=== PATIENT | male | born 2000 | race Caucasian/White ===

== ENCOUNTER 2020-06-12 03:38 | Emergency (ER) | payer OTHER ==
[2020-06-12] MEDS ORDERED: IOPAMIDOL-300 100 ML VIAL ONE (03:51)
[2020-06-12] MEDS ORDERED: BUFFERED LIDOCAINE 10 ML SYRINGE IU ONE (03:58)
--- NOTE | 2020-06-12 03:58 | ED Physician Documentation ---
History of Present Illness - Stated complaint Stated Complaint: FALL/HEAD INJ - Chief complaint Chief Complaint: Trauma Hd/Nk - History obtained from History obtained from: Patient - Additonal information Additional information: Patient comes emergency department chief complaint of fall from airplane wing with chin and right leg pain. Patient states that he was trying to carry some things up a ladder onto an airplane wing when he lost his balance and fell. He estimates he fell about 8 feet and landed on the concrete right on his chin. He states that he also had his phone in his pocket over his right thigh and that he came down on this, as well. Patient is complaining of right lateral thigh pain and pain and swelling in his chin area. He states that the incident did seem to snap his head back, but he does not have any pain in his neck. No numbness or tingling in any of his extremities. No weakness. The patient denies any rib pain or difficulty breathing. No abdominal pain. He does note some pain in the right hip when he stood up. Patient was able to get up and ambulated by himself to a private vehicle which brought him here. Upon arrival, staff did go and meet the patient in the parking lot and placed c-collar on his neck and put him intermediates spinal precautions including backboard. Patient denies any visual changes. No other complaints at this time. No dizziness. Review of Systems Ten Systems: 10 systems reviewed and negative Constitutional: reports: Reviewed and negative Eyes: reports: Reviewed and negative Ears: reports: Reviewed and negative Nose: reports: Reviewed and negative Throat: reports: Other (Mandibular injury and pain) Cardiac: reports: Reviewed and negative Respiratory: reports: Reviewed and negative GI: reports: Reviewed and negative : reports: Reviewed and negative Skin: reports: Reviewed and negative Musculoskeletal: reports: Reviewed and negative Neurologic: reports: Reviewed and negative Psychiatric: reports: Reviewed and negative Endocrine: reports: Reviewed and negative Immunocompromised: reports: Reviewed and negative PD PAST MEDICAL HISTORY - Past Medical History Past Medical History: No Cardiovascular: None Respiratory: None Neuro: None Endocrine/Autoimmune: None GI: None : None HEENT: None Psych: None Musculoskeletal: None Derm: None - Past Surgical History Past Surgical History: No - Present Medications Home Medications: Ambulatory Orders Medication Instructions Recorded Confirmed HYDROcod/ACETAM 5/325 [[place] 5/325] 1 - 2 tablet PO Q6H PRN #14 tablet 06/12/20 - Allergies Allergies/Adverse Reactions: Allergies Allergy/AdvReac Type Severity Reaction Status Date / Time No Known Drug Allergies Allergy Verified 06/12/20 03:44 - Social History Does the pt smoke?: No Smoking Status: Never smoker Does the pt drink ETOH?: Yes Does the pt have substance abuse?: No - Immunizations Immunizations are current?: Yes - POLST Patient has POLST: No PD ED PE NORMAL - Vitals Vital signs reviewed: Yes - General General: Alert and oriented X 3, No acute distress, Well developed/nourished - HEENT HEENT: PERRL, EOMI, Moist mucous membranes, Other (Moderate edema and contusion of mental area with 3 cm submental laceration. No mandibular step-off. Partial avulsion of enamel of occlusal surfaces of molar 1 on both left mandibular and left maxillary areas. No pulp exposure.) - Neck Neck: Supple, no meningeal sign, No bony TTP, Other (Trachea midline.) - Cardiac Cardiac: RRR, No murmur, Strong equal pulses - Respiratory Respiratory: No respiratory distress, Clear bilaterally - Abdomen Abdomen: Soft, Non tender, Non distended - Back Back: No spinal TTP - Derm Derm: Normal color, Warm and dry, No rash - Extremities Extremities: No deformity, No edema, Other (Moderate tenderness over proximal right thigh. Mild edema. No pain with AP or lateral compression of pelvis.) - Neuro Neuro: Alert and oriented X 3, v[employer] 2-12 intact, No motor deficit, No sensory deficit, Normal speech Eye Opening: Spontaneous Motor: Obeys Commands Verbal: Oriented GCS Score: 15 - Psych Psych: Normal mood, Normal affect Results - Vitals Vitals: Oxygen O2 Source Room air - Rads (name of study) CT face Radiology: Final report received, EMP read indepedently, See rad report (neg) CT c-spine Radiology: Final report received, EMP read indepedently, See rad report (neg) Procedures - Laceration (location) chin Length in cm: 3 Wound type: Linear, Into subcut fat, Clean. No: Exposure of bone Neurovascular status: Sensory intact, Motor intact, Vascular intact Tendon involvement: No: Tendon Injury Anesthesia: Lidocaine 1% Wound preparation: Hibiclens, Irrigated copiously NS, Wound explored, To the base. No: FB identified Skin layer closure: Nylon, Interrupted, Size #-0 - enter number (4.0), Sutures - enter # (8) Other: Patient tolerated well, No complications, Neurovascular intact, Dressing applied, Tetanus UTD PD MEDICAL DECISION MAKING - ED course Complexity details: reviewed results, re-evaluated patient, considered differential, d/w patient ED course: The patient was worked up with CT scans of the face and neck, as well as x-rays of the right hip and femur. He was treated symptomatically with a dose of IV Dilaudid. CT and x-rays showed no acute significant injuries. The patient was deemed stable for discharge home. We have discussed wound management at home, the timeline for suture removal, and the usual indications for return. Departure - Departure Disposition: 01 Home, Self Care Clinical Impression: Laceration of chin Qualifiers: Encounter type: initial encounter Qualified Code(s): S01.81XA - Laceration without foreign body of other part of head, initial encounter Facial contusion Qualifiers: Encounter type: initial encounter Qualified Code(s): S00.83XA - Contusion of other part of head, initial encounter Cervical strain Qualifiers: Encounter type: initial encounter Qualified Code(s): S16.1XXA - Strain of muscle, fascia and tendon at neck level, initial encounter Contusion, thigh and hip Qualifiers: Encounter type: initial encounter Laterality: right Qualified Code(s): S70.01XA - Contusion of right hip, initial encounter Avulsed tooth Qualifiers: Encounter type: initial encounter Qualified Code(s): S03.2XXA - Dislocation of tooth, initial encounter Condition: Stable Instructions: ED Fx Tooth, ED Laceration Facial Sutr Tape, ED Sprain Strain Neck Follow-Up: CHERYL KITCHEN [Physician No Access] - Prescriptions: HYDROcod/ACETAM 5/325 [[place] 5/325] 1 - 2 tablet PO Q6H PRN #14 tablet PRN Reason: Pain Discharge Date/Time: 06/12/20 06:10
[2020-06-12] MEDS ORDERED: HYDROmorphone 1 MG/ML CARPUJECT IVP STA ×2 (04:00→05:34)
[2020-06-12 05:36] VITALS: BP 141/82
--- NOTE | 2020-06-12 07:56 | CT Report ---
PROCEDURE: MAXILLOFACIAL WO INDICATIONS: fall from height/mandible injury TECHNIQUE: Noncontrast 1.5 mm thick axial images acquired from the mandible through the frontal sinuses, with co erik and sagittal reformatting. For radiation dose reduction, the following was used: automated ex posure control, adjustment of mA and/or kV according to patient size. COMPARISON: None. FINDINGS: Image quality: Excellent. Bones and teeth: Orbital yuen are intact. Sinus yuen show no fracture or deformity. Nasal bones and septum are intact. Visualized portions of the mandible demonstrate no fractures or subluxation. Zygomatic arches are intact. Pterygoid plates are intact. Visualized portions of the skull base an d auditory canals are intact. Sinuses: Paranasal sinuses are aerated, without fluid levels, mucosal thickening, or mucoceles. Smal l mucous retention cyst versus polyp noted in the right maxillary sinus. Mastoid air cells are aerate d. Soft tissues: No edema, masses, or fluid collections. No enlarged lymph nodes. No soft tissue lace rations or debris. Vascular: Visualized vascular structures appear normal in the absence of contrast. Bony vascular fo ramina and canals are intact. IMPRESSION: No fracture. Reviewed by: Grace Syed MD, PhD on 06/12/2020 7:55 AM PDT Approved by: Grace Syed MD, PhD on 06/12/2020 7:55 AM PDT Station ID: [id number]
--- NOTE | 2020-06-12 07:59 | CT Report ---
PROCEDURE: CERVICAL SPINE WO INDICATIONS: injury/fall from height TECHNIQUE: Noncontrast 3 mm thick sections acquired from the skull base to the T4 level. Sagittal and coronal r eformats were then constructed. For radiation dose reduction, the following was used: automated exp osure control, adjustment of mA and/or kV according to patient size. COMPARISON: None. FINDINGS: Image quality: Excellent. Bones: No fractures or dislocations. Visualized superior ribs are intact. Soft tissues: Prevertebral soft tissues are normal in thickness. No paravertebral hematomas. No ap ical pneumothoraces. IMPRESSION: No fracture. No acute osseous lesion. If there is continued clinical concern for pathology, then MRI should be considered for further evaluation. Reviewed by: Grace Syed MD, PhD on 06/12/2020 7:58 AM PDT Approved by: Grace Syed MD, PhD on 06/12/2020 7:58 AM PDT Station ID: [id number]
--- NOTE | 2020-06-12 09:14 | XRAY Report ---
PROCEDURE: Hip w/Pelvis 2-3V RT INDICATIONS: fall from height/pain TECHNIQUE: AP pelvis with lateral view of the right hip. COMPARISON: None. FINDINGS: Bones: No fractures or dislocations. Pelvic ring appears intact. No suspicious bony lesions. Soft tissues: The visualized bowel gas pattern is normal. No suspicious soft tissue calcifications. IMPRESSION: 1. No fracture or dislocation. Reviewed by: Cameron Mcneil MD on 06/12/2020 9:12 AM PDT Approved by: Cameron Mcneil MD on 06/12/2020 9:12 AM PDT Station ID: [id number]
--- NOTE | 2020-06-12 09:15 | XRAY Report ---
PROCEDURE: Femur 2V RT INDICATIONS: fall from height/pain TECHNIQUE: 5 views of the femur were acquired. COMPARISON: Concurrent study of the pelvis and right hip. FINDINGS: Bones: No fractures or dislocations. No suspicious bony lesions. Soft tissues: No suspicious soft tissue calcifications or masses. IMPRESSION: 1. No fracture or dislocation. Concordant with preliminary report. Reviewed by: Cameron Mcneil MD on 06/12/2020 9:14 AM PDT Approved by: Cameron Mcneil MD on 06/12/2020 9:14 AM PDT Station ID: [id number]
== END 2020-06-12 06:10 | disposition home or self-care (01) ==
LOC: ED 03:38
DX: S01.81XA Laceration without foreign body of other part of head, initial encounter (principal); S16.1XXA Strain of muscle, fascia and tendon at neck level, initial encounter; S70.01XA Contusion of right hip, initial encounter; S03.2XXA Dislocation of tooth, initial encounter; W17.89XA Other fall from one level to another, initial encounter; Y99.1 Military activity
CPT/HCPCS: 12013; 70486; 72125; 73502; 73552; 96374; 96376; 99284; J1170

== ENCOUNTER 2020-06-12 03:38 | Outpatient (CLI) | payer OTHER | END 2020-06-12 03:39 | disposition critical access hospital (66) | LOC: EMS 03:38 | DX: Z04.3 Encounter for examination and observation following other accident (principal); M54.2 Cervicalgia; R51.9 Headache, unspecified; R20.2 Paresthesia of skin ==